=== PATIENT | female | born 1980 | race Caucasian/White ===

== ENCOUNTER 2021-06-06 18:11 | Emergency (ER) | payer BC ==
[~2021-06-06] VITALS: Ht 167.6 cm; Wt 65.8 kg
--- NOTE | 2021-06-06 19:00 | NUR ---
patient walking to er c/o chronic headache described pain as sitting in electric chair.
--- NOTE | 2021-06-06 19:07 | NUR ---
report endorsed to nurse Courtney all questions answered.
[2021-06-06] MEDS ORDERED: HYDROCODONE/APAP 10-325 MG TABLET PO ONE (20:00)
[2021-06-06] MEDS ORDERED: ONDANSETRON ODT 4 MG TAB.RAPDIS SL ONE (20:00)
[2021-06-06] MEDS ORDERED: ONDANSETRON ODT 4 MG TAB.RAPDIS ONE (20:12)
[2021-06-06] MEDS ORDERED: HYDROCODONE/APAP 10-325 MG TABLET ONE (20:12)
[2021-06-06] MEDS ORDERED: ONDA4TAB5 PO (21:22)
[2021-06-06] MEDS ORDERED: HYDR-4209 PO (21:22)
[2021-06-06] MEDS ORDERED: CYCL10TA9 PO (21:22)
[2021-06-06 21:43] VITALS: BP 155/92
--- NOTE | 2021-06-06 21:43 | NUR ---
Patient discharged to home in stable condition. Written and verbal after care instructions given. Patient verbalizes understanding of instructions. Stressed follow up or return to ER for worsening s/s.
== END 2021-06-06 21:44 | disposition home or self-care (01) ==
LOC: ER 18:11
DX: M79.2 Neuralgia and neuritis, unspecified (principal); R05.9 Cough, unspecified; J02.9 Acute pharyngitis, unspecified; J34.89 Other specified disorders of nose and nasal sinuses; Z20.822 Contact with and (suspected) exposure to COVID-19; R03.0 Elevated blood-pressure reading, without diagnosis of hypertension
CPT/HCPCS: A4663; Q0162